=== PATIENT | female | born 1990 | race Caucasian/White ===

== ENCOUNTER 2022-10-01 04:22 | Emergency (ER) | payer OTHER ==
[~2022-10-01] VITALS: Ht 180.3 cm; Wt 97.5 kg
[2022-10-01 04:35] VITALS: BP_SYST 160
--- NOTE | 2022-10-01 04:35 | NUR ---
triage completed by charge nurse EUGENIE Davies. Pt placed in er bed 2. REceived report at this time.
--- NOTE | 2022-10-01 04:45 | NUR ---
First contact. Pt asked to provide urine sample. Awaiting sample at this time.
--- NOTE | 2022-10-01 05:05 | NUR ---
ER doctor present in room at this time.
[2022-10-01] MEDS ORDERED: KETOROLAC TROMETHAMINE 60 MG/2 ML VIAL IM ONE ×2 (05:15→05:19)
[2022-10-01] MEDS ORDERED: HYDR-3917 PO (05:19)
[2022-10-01] MEDS ORDERED: IBUP-1971 PO (05:19)
[2022-10-01 05:35] VITALS: BP_SYST 134
--- NOTE | 2022-10-01 05:35 | NUR ---
Patient given written and verbal discharge instructions and verbalizes understanding. ER MD discussed with patient the results and treatment provided. Patient in stable condition. ID arm band removed.Rx of ibuprofen and hydrocodone given. Patient educated on pain management and to follow up with PMD. Opportunity for questions provided and answered.
== END 2022-10-01 05:35 | disposition home or self-care (01) ==
LOC: SED 04:22
DX: Z79.899 Other long term (current) drug therapy (principal)
CPT/HCPCS: 99283; 81002; 81025; 96372; J1885